=== PATIENT | female | born 1945 | race Two or more races ===

== ENCOUNTER 2017-08-07 07:09 | Outpatient (CLI) | payer OTHER ==
[~2017-08-07 07:09] MED LIST: METFORMIN HCL850 MG
== END 2017-08-07 07:17 | disposition home or self-care (01) ==
LOC: SONOGRAMA 07:09 → MAMO-SONO 07:45
DX: E04.1 Nontoxic single thyroid nodule (principal)

== ENCOUNTER 2017-08-07 07:45 | Outpatient (CLI) | payer OTHER | END 2017-08-07 07:53 | disposition home or self-care (01) | LOC: LAB 07:45 | DX: E03.8 Other specified hypothyroidism (principal) ==

== ENCOUNTER 2017-10-01 13:13 | Outpatient (CLI) | payer OTHER | END 2017-10-01 13:20 | disposition home or self-care (01) | LOC: SONOGRAMA 13:13 | DX: E04.1 Nontoxic single thyroid nodule (principal) ==

== ENCOUNTER 2019-01-01 09:26 | Outpatient (CLI) | payer OTHER | END 2019-01-01 09:31 | disposition home or self-care (01) | LOC: MRI 09:26 | DX: R42 Dizziness and giddiness (principal) | CPT/HCPCS: 70551 ==

== ENCOUNTER 2020-01-14 08:30 | Inpatient (IN) | payer OTHER ==
[2020-01-14] MEDS ORDERED: ECOTRIN81 MG PO (10:58)
[2020-01-14] MEDS ORDERED: GLIMEPIRIDE2 M1 PO (10:58)
[2020-01-14] MEDS ORDERED: CRESTOR5 MG PO (10:59)
[2020-01-21] MEDS ORDERED: CALCIUM 600-VI1 EAC2 (08:05)
[2020-01-21] MEDS ORDERED: ROSUVASTATIN CAL5 MG (08:06)
[2020-01-21] MEDS ORDERED: METFORMIN HCL850 M1 (08:06)
[2020-01-21] MEDS ORDERED: GLIMEPIRIDE1 M1 (08:06)
[2020-01-25] MEDS ORDERED: HYOSCYAMINE0.125 M1 SL (09:08)
[2020-01-25] MEDS ORDERED: INTESTINEX680 M1 PO (09:09)
[2020-01-25] MEDS ORDERED: OXYC1TAB9 PO (09:09)
== END 2020-01-25 10:56 | disposition home or self-care (01) | DRG 331 ==
LOC: O/R 01-21 05:50 → SURH 01-21 05:50 → SURG 01-21 18:05 → O/R 01-21 18:12 → SURH 01-21 18:15
PROVIDERS: ADMIT Surgery; ATTEND Surgery
PROC: 07BC4ZX Excision of Pelvis Lymphatic, Percutaneous Endoscopic Approach, Diagnostic (ICD-10-PCS; 2020-01-21)
PROC: 0DTF4ZZ Resection of Right Large Intestine, Percutaneous Endoscopic Approach (ICD-10-PCS; principal; 2020-01-21 18:15)
DX: C18.2 Malignant neoplasm of ascending colon (principal); E11.9 Type 2 diabetes mellitus without complications; Z79.4 Long term (current) use of insulin

== ENCOUNTER 2020-06-21 07:18 | Day surgery (SDC) | payer OTHER ==
[~2020-06-21 07:18] MED LIST changes: +CALCIUM 600-VI1 EAC2; +CRESTOR5 MG PO; +ECOTRIN81 MG PO; +GLIMEPIRIDE1 M1; +GLIMEPIRIDE2 M1 PO; +HYOSCYAMINE0.125 M1 SL; +INTESTINEX680 M1 PO; +METFORMIN HCL850 M1; +OXYC1TAB9 PO; +ROSUVASTATIN CAL5 MG
== END 2020-06-21 11:30 | disposition home or self-care (01) ==
LOC: AMB-ENDOS 07:18
PROVIDERS: ATTEND Surgery
DX: D12.8 Benign neoplasm of rectum (principal); K64.8 Other hemorrhoids; Z20.822 Contact with and (suspected) exposure to COVID-19

== ENCOUNTER 2023-11-08 07:37 | Outpatient (CLI) | payer OTHER | END 2023-11-08 07:56 | disposition home or self-care (01) | LOC: TOM 07:37 | PROVIDERS: ATTEND Internal Medicine | DX: R19.5 Other fecal abnormalities (principal); R10.9 Unspecified abdominal pain ==